=== PATIENT | female | born 1980 | race Two or more races ===

== ENCOUNTER 2018-06-23 20:48 | Inpatient (IN) | payer SELFPAY ==
[2018-06-23 21:20] LABS: ADD MAN DIFF? NO
[2018-06-23 21:21] LABS: BASO % 0 % (0-3); EOS # 0.2 x10^3/uL (0.0-0.7); EOS % 2 % (0-3); HEMATOCRIT 39.8 % (36.0-47.0); HEMOGLOBIN 13.7 g/dL (12.0-15.5); LYMPH # 1.9 x10^3/uL (1.0-4.8); LYMPH % 24 % (24-48); MEAN CORPUSCULAR HEMOGLOBIN 31 pg (25-35); MEAN CORPUSCULAR HGB CONC 34 g/dL (31-37); MEAN CORPUSCULAR VOLUME 91 fL (79-100); MONO # 0.5 x10^3/uL (0.0-1.1); MONO % 6 % (0-9); NEUT # 5.2 x10^3uL (1.8-7.7); NEUT % 67 % (31-73); PLATELET COUNT 322 x10^3/uL (140-400); RED CELL DISTRIBUTION WIDTH 12.8 % (11.5-14.5); WHITE BLOOD COUNT 7.7 x10^3/uL (4.0-11.0)
[2018-06-23 21:22] LABS: URINE HCG POC HCG NEGATIVE (Negative)
[2018-06-23 21:23] LABS: CLARITY,URINE CLOUDY; COLOR,URINE RED; GLUCOSE,URINE NEGATIVE (NEG)
[2018-06-23 21:27] LABS: BACTERIA,URINE MANY /HPF (0-FEW); SQUAMOUS EPITHELIAL CELL,UR MOD /LPF
[2018-06-23 21:29] LABS: BARBITURATES NEG (NEG); BENZODIAZEPINES NEG (NEG); CANNABINOIDS NEG (NEG); COCAINE NEG (NEG); METHADONE NEG (NEG); OPIATES NEG (NEG); PHENCYCLIDINE NEG (NEG)
[2018-06-23 21:30] LABS: ANION GAP 10 (6-14); BLOOD UREA NITROGEN 12 mg/dL (7-20); BUN/CREATININE RATIO 13 (6-20); CARBON DIOXIDE 25 mmol/L (21-32); CHLORIDE 104 mmol/L (98-107); CREATININE 0.9 mg/dL (0.6-1.0); GFR 70.8; GLUCOSE 121 mg/dL (70-99); POTASSIUM 3.8 mmol/L (3.5-5.1); RBC,URINE >40 /HPF (0-2); SODIUM 139 mmol/L (136-145); WBC,URINE >40 /HPF (0-4)
[2018-06-23] MEDS: MORPHINE SULFATE 10 MG/ML VIAL. IV ×2 (21:30→22:59)
[2018-06-23] MEDS: IV NORMAL SALINE 1000ML BAG 1,000 ML IV ×2 (21:30→23:57)
[2018-06-23] MEDS: ONDANSETRON PF 4 MG/2 ML VIAL. IV (21:30)
[2018-06-23 21:35] LABS: ALBUMIN 3.9 g/dL (3.4-5.0); ALK PHOS 91 U/L (46-116); ALT (SGPT) 15 U/L (14-59); AST (SGOT) 13 U/L (15-37); LIPASE 227 U/L (73-393); TOTAL BILIRUBIN 0.2 mg/dL (0.2-1.0); TOTAL PROTEIN 7.9 g/dL (6.4-8.2)
[2018-06-23 21:36] LABS: AMPHETAMINE/METHAMPHETAMINE NEG (NEG); ETHANOL, URINE NEG (NEG)
[2018-06-23 21:37] LABS: ETHANOL < 10 mg/dL (0-10)
[2018-06-23] MEDS: cefTRIAXone IV Push 1 GM VIAL. IVP (22:03)
[2018-06-23] MEDS: CIPROFLOXACIN 400MG PREMIX 200 ML IV (22:03)
[2018-06-23] MEDS: TAMSULOSIN 0.4 MG CAP.ER.24H. PO (22:59)
[2018-06-23] MEDS: KETOROLAC 30 MG/ML INJ. IV (22:59)
[2018-06-23] MEDS ORDERED: ACETAMINOPHEN 325 MG TABLET. PO (23:00)
[2018-06-23] MEDS ORDERED: ONDANSETRON PF 4 MG/2 ML VIAL. IV (23:00)
[2018-06-23] MEDS ORDERED: MORPHINE SULFATE 4 MG/ML DISP.SYRIN. IV (23:00)
[2018-06-23] MEDS ORDERED: KETOROLAC 30 MG/ML INJ. IV (23:00)
[2018-06-24 04:42] LABS: ADD MAN DIFF? NO
[2018-06-24 05:17] LABS: BASO % 1 % (0-3); EOS # 0.1 x10^3/uL (0.0-0.7); EOS % 2 % (0-3); HEMATOCRIT 35.9 % (36.0-47.0); HEMOGLOBIN 12.2 g/dL (12.0-15.5); LYMPH # 2.2 x10^3/uL (1.0-4.8); LYMPH % 31 % (24-48); MEAN CORPUSCULAR HEMOGLOBIN 31 pg (25-35); MEAN CORPUSCULAR HGB CONC 34 g/dL (31-37); MEAN CORPUSCULAR VOLUME 91 fL (79-100); MONO # 0.5 x10^3/uL (0.0-1.1); MONO % 7 % (0-9); NEUT # 4.4 x10^3uL (1.8-7.7); NEUT % 60 % (31-73); PLATELET COUNT 258 x10^3/uL (140-400); RED BLOOD COUNT 3.97 x10^6/uL (3.50-5.40); RED CELL DISTRIBUTION WIDTH 12.8 % (11.5-14.5); WHITE BLOOD COUNT 7.3 x10^3/uL (4.0-11.0)
[2018-06-24 05:29] LABS: ANION GAP 5 (6-14); BLOOD UREA NITROGEN 10 mg/dL (7-20); CALCIUM 7.8 mg/dL (8.5-10.1); CARBON DIOXIDE 28 mmol/L (21-32); CHLORIDE 108 mmol/L (98-107); CREATININE 0.7 mg/dL (0.6-1.0); GFR 94.7; GLUCOSE 100 mg/dL (70-99); POTASSIUM 3.5 mmol/L (3.5-5.1); SODIUM 141 mmol/L (136-145)
[2018-06-24] MEDS: TAMSULOSIN 0.4 MG CAP.ER.24H. PO (09:10)
[2018-06-24] MEDS: CIPROFLOXACIN 400MG PREMIX 200 ML IV (11:00)
[2018-06-24] MEDS: HYDROcodone/APAP 5/325MG 1 TAB TABLET PO (12:20)
== END 2018-06-24 12:30 | disposition home or self-care (01) | DRG 694 ==
LOC: ER 20:48 → 4 NORTH 23:01
DX: N20.0 Calculus of kidney (principal); N12 Tubulo-interstitial nephritis, not specified as acute or chronic; N39.0 Urinary tract infection, site not specified; Z83.3 Family history of diabetes mellitus; Z79.899 Other long term (current) drug therapy
CPT/HCPCS: 36415; 74176; 80048; 80053; 80307; 81001; 81025; 83690; 85025; 87086; 96361; 96374; 96375; 96376; 99285; 99285-25; G0480; J0696; J0744; J1885; J2270; J2405; J7030